=== PATIENT | female | born 1980 | race Caucasian/White ===

== ENCOUNTER 2017-01-02 03:23 | Emergency (ER) | payer SELFPAY ==
[~2017-01-02] VITALS: Ht 157.5 cm; Wt 59.5 kg
[2017-01-02 03:27] VITALS: BP 123/86; PULSE 69; RESP 16; TEMP 97.8; O2SAT 99
[2017-01-02] MEDS ORDERED: SODIUM CHLOR 0.9% 1000 ML INJ 1,000 ML IV ONE (03:44)
[2017-01-02] MEDS ORDERED: MECLIZINE HCL 25 MG TAB PO ONE (03:45)
[2017-01-02] MEDS ORDERED: ONDANSETRON HCL 4 MG/2 ML VIAL IVP ONE (03:45)
[2017-01-02] MEDS ORDERED: SODIUM CHLORIDE 0.9% FLUSH 10 ML FLUSH IVF PRN (03:45)
[2017-01-02] MEDS ORDERED: LORazepam 2 MG/ML VIAL IV PUSH ONE (03:45)
[2017-01-02] MEDS ORDERED: MECL-62 PO (03:50)
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
[2017-01-02 04:26] LABS: AUTOMATED NEUTROPHIL # 6.3 TH/MM3 (1.8-7.7); BASOPHIL # 0.3 TH/MM3 (0-0.2); BASOPHIL % 2.6 % (0.0-2.0); EOSINOPHIL # 0.3 TH/MM3 (0-0.4); EOSINOPHIL % 2.4 % (0.0-4.0); LYMPHOCYTE # 4.5 TH/MM3 (1.0-4.8); MEAN CELL VOLUME 87.7 FL (80.0-100.0); MEAN CORPUSCULAR HEMOGLOBIN 28.7 PG (27.0-34.0); MEAN CORPUSCULAR HGB CONC 32.8 % (32.0-36.0); PLATELET COUNT 354 TH/MM3 (150-450); RED BLOOD COUNT 4.91 MIL/MM3 (4.00-5.30); RED CELL DISTRIBUTION WIDTH 13.4 % (11.6-17.2); WHITE BLOOD COUNT 12.6 TH/MM3 (4.0-11.0)
[2017-01-02 04:28] LABS: HEMO FLAGS DIFF FINAL
[2017-01-02 04:33] LABS: POTASSIUM 4.1 MEQ/L (3.5-5.1)
[2017-01-02 04:36] LABS: BICARBONATE 23.7 MEQ/L (21.0-32.0)
[2017-01-02 05:18] VITALS: BP 127/84
--- NOTE | 2017-01-02 15:04 | EKG ---
Date Performed: 01/02/2017 Time Performed: 04:35:00 PTAGE: 36 years EKG: Baseline artifact present Sinus rhythm WITH SINUS ARRHYTHMIA NORMAL ECG NO PREVIOUS TRACING DOCTOR: Cesar Galindo Interpretating Date/Time 01/02/2017 15:02:05
== END 2017-01-02 05:21 | disposition home or self-care (01) ==
LOC: PHED 03:23
DX: R42 Dizziness and giddiness (principal); R11.0 Nausea; I49.8 Other specified cardiac arrhythmias; Z72.0 Tobacco use
CPT/HCPCS: 80048; 85025; 93005; 96361; 96374; 96375; 99284; J2060; J2405; J7030

== ENCOUNTER 2017-08-25 08:53 | Emergency (ER) | payer SELFPAY ==
[~2017-08-25] VITALS: Ht 157.5 cm; Wt 56.0 kg
[~2017-08-25 08:53] MED LIST changes: -IBUP-232 PO; -NEXI20CA PO
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
[2017-08-25 09:10] VITALS: BP 115/84; PULSE 88; RESP 16; TEMP 99; O2SAT 98
[2017-08-25] MEDS ORDERED: ACETAMINOPHEN 325 MG TAB PO ONE (09:15)
[2017-08-25] MEDS ORDERED: NEXI20CA PO (09:22)
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
[2017-08-25] MEDS ORDERED: DIAZEPAM 5 MG TAB PO ONE (11:30)
[2017-08-25] MEDS ORDERED: IBUP-232 PO (11:36)
[2017-08-25 11:57] VITALS: BP 138/98
--- NOTE | 2017-08-25 13:03 | EKG ---
Date Performed: 08/25/2017 Time Performed: 09:09:39 PTAGE: 37 years EKG: Sinus rhythm WITH SINUS ARRHYTHMIA NORMAL ECG Since PREVIOUS TRACING , no significant change noted PREVIOUS TRACIN01/02/2017 04.35 DOCTOR: Leighton Haywood Interpretating Date/Time 08/25/2017 13:01:49
== END 2017-08-25 11:58 | disposition home or self-care (01) ==
LOC: PHEFT 08:53
DX: S22.039A Unspecified fracture of third thoracic vertebra, initial encounter for closed fracture (principal); R07.9 Chest pain, unspecified; W51.XXXA Accidental striking against or bumped into by another person, initial encounter; Z72.0 Tobacco use; Z79.899 Other long term (current) drug therapy
CPT/HCPCS: 71045; 72125; 72128; 84703; 93005

== ENCOUNTER → 2017-08-25 | Outpatient (CLI) | payer SELFPAY ==
[~2017-08-25] MED LIST: IBUP-232 PO; MECL-62 PO; NEXI20CA PO
== END ==
LOC: HORT 13:21
PROVIDERS: ATTEND Emergency Medicine
DX: S22.039A Unspecified fracture of third thoracic vertebra, initial encounter for closed fracture (principal); X58.XXXA Exposure to other specified factors, initial encounter; Z47.89 Encounter for other orthopedic aftercare
CPT/HCPCS: L1050